=== PATIENT | male | born 1935 | race Caucasian/White ===

== ENCOUNTER 2016-10-07 09:53 | Emergency (ER) | payer MEDICARE ==
[~2016-10-07 09:53] MED LIST: ACETAMINOPHEN325 MG PO; ATIVAN0.5 MG PO; BAYER CHEWABLE81 MG PO; CELEXA20 MG PO; DULCOLAX5 MG PO; HALDOL5 MG PO; IMODIUM2 MG PO; LACTASE3000 UNIT PO; LEVSIN/ANASP0.125 MG PO; MORPHINE SULFAT30 M4 PO; NEURONTIN800 MG PO; NITROQUICK0.4 MG SL; PHENERGAN25 MG RC; PLAVIX75 MG PO; SENNA8.8 MG/5 M PO; TRAZODONE HCL50 MG PO; VOLTAREN100 GM
== END 2016-10-07 11:40 | disposition home or self-care (01) ==
LOC: D.ER 09:53
DX: S01.312A Laceration without foreign body of left ear, initial encounter (principal); W45.8XXA Other foreign body or object entering through skin, initial encounter; Y93.89 Activity, other specified; Y92.129 Unspecified place in nursing home as the place of occurrence of the external cause; F41.9 Anxiety disorder, unspecified; C18.9 Malignant neoplasm of colon, unspecified; F32.9 Major depressive disorder, single episode, unspecified; F42.9 Obsessive-compulsive disorder, unspecified

== ENCOUNTER 2017-05-12 14:20 | Emergency (ER) | payer MEDICARE ==
[2014-10-03 19:16] VITALS: BMI 20.8
== END 2017-05-12 16:42 | disposition home or self-care (01) ==
LOC: D.ER 14:20
DX: M25.521 Pain in right elbow (principal); M25.552 Pain in left hip; W05.0XXA Fall from non-moving wheelchair, initial encounter; Y93.89 Activity, other specified; Y92.129 Unspecified place in nursing home as the place of occurrence of the external cause; Z85.038 Personal history of other malignant neoplasm of large intestine; F42.9 Obsessive-compulsive disorder, unspecified

== ENCOUNTER 2017-09-03 14:36 | Inpatient (IN) | payer MEDICARE ==
[~2017-09-03] VITALS: Ht 172.7 cm; Wt 63.7 kg
--- NOTE | ~2017-09-03 | PN ---
PATIENT:JERILYN BENÍTEZ MEDICAL RECORD: [id number] LOCATION:MARIANNE Mir ADMISSION DATE: 09/03/17 PROGRESS NOTE DATE OF SERVICE: 09/06/2017 SUBJECTIVE: No new complaint. OBJECTIVE: Considerable additional history was obtained by staff from the patient's daughter. The patient has a long past history of alcoholism. He also has a history of violence and threatening others. He has been previously hospitalized because of combative behavior at a geriatric facility in [place], [place]. In 2003, his disappeared under mysterious circumstances. Her whereabouts evidently have never been determined. He has made threats against other family members, and of course since admission, the patient has been agitated and combative with staff. Serum valproic acid level from this morning is subtherapeutic at 34.1. On exam, mood is irritable. Affect is brittle. Speech is terse. Content of thought shows nonspecific paranoid ideation. Sensorium shows no change. ASSESSMENT: No change in diagnosis. PLAN: 1. Advance Depakote Sprinkles to 500 mg b.i.d. 2. Add Geodon 20 mg b.i.d. 3. Continue other current medications and supportive therapy. TRANSINT:[id number] Voice Confirmation ID: [id number] DOCUMENT ID: [id number] JAMILAH LUONG III, MD at 1026 CC: [id number] DICTATION DATE: 09/06/17 1126 ARMORED CABLE MACHINE OPERATOR: 09/06/17 1233 ADM IN [place] [id number] [place] [address]
--- NOTE | ~2017-09-03 | PN ---
PATIENT:JERILYN BENÍTEZ MEDICAL RECORD: [id number] LOCATION:MARIANNE Mir ADMISSION DATE: 09/03/17 PROGRESS NOTE DATE OF SERVICE: 09/24/2017 SUBJECTIVE: The patient's case was discussed with staff. He has no new complaint. OBJECTIVE: The patient denies intent to harm himself or others. He generally tolerates his medicines well. ASSESSMENT: No change in diagnoses. PLAN: Brief supportive and educational interventions were made. Long-term prognosis is guarded. TRANSINT:[id number] Voice Confirmation ID: [id number] DOCUMENT ID: [id number] NINA MOTTA MD at 1001 CC: [id number] DICTATION DATE: 09/24/17 1148 MORTGAGE LOAN SPECIALIST: 09/24/17 1201 ADM IN [place] [address] [place] [address]
--- NOTE | ~2017-09-03 | PN ---
PATIENT:JERILYN BENÍTEZ MEDICAL RECORD: [id number] LOCATION:CarinaCLEMENTINA Clarke ADMISSION DATE: 09/03/17 PROGRESS NOTE DATE OF SERVICE: 09/10/2017 SUBJECTIVE: The patient's case was discussed with staff. He has no new complaint. OBJECTIVE: The patient is not sleeping well. He has been somewhat irritable and angry, but not openly aggressive or threatening. ASSESSMENT: No change in diagnoses. PLAN: The patient's Cogentin is going to be discontinued. I am concerned that the medication's antihistaminic effect may be clouding his sensorium. If he displays evidence of extrapyramidal side effects, I would prefer to address the issue through his antipsychotic dose as opposed to the use of Cogentin. Furthermore, I am going to address the sleep issue with a low dose of trazodone, which may help organize his thinking and behavior some. TRANSINT:[id number] Voice Confirmation ID: [id number] DOCUMENT ID: [id number] NINA MOTTA MD at 1844 CC: [id number] DICTATION DATE: 09/10/17 1102 OPTICS MANUFACTURING TECHNICIAN: 09/11/17 0039 ADM IN [facility] [address] [place] [id number]
--- NOTE | ~2017-09-03 | PN ---
PATIENT:JERILYN BENÍTEZ MEDICAL RECORD: [id number] LOCATION:MARIANNE Lim112 ADMISSION DATE: 09/03/17 PROGRESS NOTE DATE OF SERVICE: 09/16/2017 SUBJECTIVE: No new complaint is noted. OBJECTIVE: The patient continues to be irritable, but does accept redirection. On exam, mood is indeed irritable. Affect is brittle. Speech is quite terse. Content of thought is unchanged. Sensorium is unchanged. ASSESSMENT: No change in diagnoses. PLAN: 1. Maintain current medication. 2. Continue supportive therapy. TRANSINT:[id number] Voice Confirmation ID: [id number] DOCUMENT ID: [id number] JAMILAH LUONG III, MD at 0703 CC: [id number] DICTATION DATE: 09/16/17 1000 OUTREACH CLINICIAN: 09/16/17 1109 ADM IN [place] [address] [place] [id number]
--- NOTE | ~2017-09-03 | PN ---
PATIENT:JERILYN BENÍTEZ MEDICAL RECORD: [id number] LOCATION:MARIANNE Mir ADMISSION DATE: 09/03/17 PROGRESS NOTE DATE OF SERVICE: 09/14/2017 SUBJECTIVE: No new complaint. OBJECTIVE: The patient continues to show outbursts of agitation and yelling at night. During the daytime, he is somewhat better controlled. The patient's Geodon has been reduced to 20 mg at bedtime only due to perceived extrapyramidal effects. Cogentin has also been discontinued. On exam, the patient's mood is irritable. Affect is brittle. Speech is overly loud. Content of thought is negative for clear cut psychosis. Sensorium is unchanged. ASSESSMENT: No change in diagnosis. PLAN: 1. We will continue now with current medication orders. 2. Continue supportive therapy. TRANSINT:[id number] Voice Confirmation ID: [id number] DOCUMENT ID: [id number] JAMILAH LUONG III, MD at 1051 CC: [id number] DICTATION DATE: 09/14/17 1205 HEALTH AND SAFETY TECH: 09/14/17 1314 ADM IN [place] [id number] [place] [id number]
--- NOTE | ~2017-09-03 | PN ---
PATIENT:JERILYN BENÍTEZ MEDICAL RECORD: [id number] LOCATION:MARIANNE Mir ADMISSION DATE: 09/03/17 PROGRESS NOTE DATE OF SERVICE: 09/21/2017 SUBJECTIVE: No coherent complaint. OBJECTIVE: The patient continues to be combative unfortunately. He did again require p.r.n. medication. However, he has been accepted by [facility] and Leila assessment is complete. On exam, mood is irritable. Affect is very brittle. Speech is for the most part incoherent. Content of thought exhibits nonspecific paranoid ideation. Sensorium shows no change. ASSESSMENT: No change in diagnosis. PLAN: 1. Adjust neuroleptics as indicated. 2. The patient's current valproic acid level is subtherapeutic (in the 40s). However, current dose will be maintained as the patient has been inconsistent in taking medication. 3. Continue other medications and supportive therapy. TRANSINT:[id number] Voice Confirmation ID: [id number] DOCUMENT ID: [id number] JAMILAH LUONG III, MD at 2052 CC: [id number] DICTATION DATE: 09/21/17 1053 BEER STILL RUNNER COMPOUNDER: 09/21/17 1125 ADM IN [facility] [address] [place] [address]
--- NOTE | ~2017-09-03 | PN ---
PATIENT:JERILYN BENÍTEZ MEDICAL RECORD: [id number] LOCATION:MARIANNE Lim112 ADMISSION DATE: 09/03/17 PROGRESS NOTE DATE OF SERVICE: 09/25/2017 SUBJECTIVE: The patient's case was discussed with staff. He has no new complaint. OBJECTIVE: The patient denies intent to harm himself or others. He generally tolerates his medicines well. ASSESSMENT: No change in diagnoses. PLAN: Brief supportive and educational interventions were made. The patient is not showing acute evidence of direct dangerousness. TRANSINT:[id number] Voice Confirmation ID: [id number] DOCUMENT ID: [id number] NINA MOTTA MD at 1409 CC: [id number] DICTATION DATE: 09/25/17 1030 FOUNDATION COORDINATOR: 09/25/17 1658 ADM IN [place] [id number] [place] [address]
--- NOTE | ~2017-09-03 | PN ---
PATIENT:JERILYN BENÍTEZ MEDICAL RECORD: [id number] LOCATION:MARIANNE Mir ADMISSION DATE: 09/03/17 PROGRESS NOTE DATE OF SERVICE: 09/09/2017 SUBJECTIVE: No new complaint. OBJECTIVE: The patient's valproic acid level from this morning was 62, which is therapeutic. He does give some evidence of extrapyramidal syndrome. Agitation and combativeness are markedly reduced. On exam, mood remains somewhat irritable. Affect is brittle. Speech is tangential. Content of thought shows no overt psychosis. Sensorium shows no change. ASSESSMENT: No change in diagnosis. PLAN: 1. We will add benztropine 1 mg b.i.d. 2. Continue other current medications. 3. Continue supportive therapy. TRANSINT:[id number] Voice Confirmation ID: [id number] DOCUMENT ID: [id number] JAMILAH LUONG III, MD at 1037 CC: [id number] DICTATION DATE: 09/09/17 1109 SUPPLY CHAIN DESIGN MANAGER: 09/09/17 1255 ADM IN [place] [address] [place] [address]
--- NOTE | ~2017-09-03 | PSY ---
PATIENT NAME:JERILYN BENÍTEZ MEDICAL RECORD: [id number] : 34 LOCATION:MARIANNE Mir2 ADMISSION DATE: 09/03/17 ACCOUNT: [id number] PSYCHIATRIC EVALUATION DATE OF EVALUATION: 09/04/17 IDENTIFYING DATA: This is the first known Jail admission for this 82-year-old white male. The patient was admitted on transfer from [facility] in [place]. HISTORY OF PRESENT ILLNESS: This patient does have a past diagnosis of schizophrenia recorded in the old chart; however, that is not included on the current diagnosis. 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 Prior to admission, the patient had been showing increasing agitation, insomnia, and combativeness. He had been noncompliant with care as well. Following admission, the patient continued to show combativeness and agitation. Because of worsening mental status and deteriorating behavior, the patient was admitted. PAST MEDICAL HISTORY: Significant for coronary artery disease, past history of colon cancer, osteoarthritis and constipation as well as possible seizure disorder. MEDICATIONS: Medications at the time of admission included Neurontin 300 mg t.i.d., Keppra 500 mg b.i.d., omeprazole 20 mg daily, Depakote Sprinkle 250 mg t.i.d., and p.r.n. nitroglycerin for chest pain. FAMILY HISTORY: Noncontributory. SOCIAL HISTORY: The patient has been a [facility] resident for some time. No history of substance abuse or legal entanglements. ALLERGIES: LISTED SULFONAMIDE ANTIBIOTICS. MENTAL STATUS: On interview, the patient remains agitated and irritable and somewhat difficult to redirect. Affect is brittle. Speech is tangential. Content of thought is positive for nonspecific paranoid ideation. On sensorium testing, the patient is oriented to person, but not clearly as to place nor time. He shows memory impairment in all aspects. Insight is very poor. 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 AXIS II: No diagnosis. AXIS III: Coronary artery disease, history of colon cancer, osteoarthritis, constipation. AXIS IV: Severe. AXIS V: 34. PLAN: 1. The patient is admitted for further medical and psychiatric workup. 2. Medication adjustment is indicated. 3. Daily supportive therapy. TRANSINT:[id number] Voice Confirmation ID: [id number] DOCUMENT ID: [id number] JAMILAH LUONG III, MD at 1027 CC: [id number] DICTATION DATE: 09/04/17 1351 COLLISION REPAIRER: 09/04/17 1428 ADM IN [place] [address] [place] [id number]
--- NOTE | ~2017-09-03 | PN ---
PATIENT:JERILYN BENÍTEZ MEDICAL RECORD: [id number] LOCATION:MARIANNE Mir ADMISSION DATE: 09/03/17 PROGRESS NOTE DATE OF SERVICE: 09/08/2017 SUBJECTIVE: No new complaint. OBJECTIVE: The patient continues to have outbursts of agitation and yelling. He was tested by Dr. Gutierrez and scored only 5/30 on the [facility] Mental Status exam. Staff has made contact with the patient's family. He will be transferred to [facility] when he is ready for discharge. On exam, mood irritable. Affect very brittle. Speech is loud and profane. Content of thought shows nonspecific paranoid ideation. Sensorium shows no change. ASSESSMENT: No change in diagnosis. PLAN: 1. Adjust neuroleptics as indicated for control of threatening behavior. 2. Continue other medications. 3. Continue supportive therapy. TRANSINT:[id number] Voice Confirmation ID: [id number] DOCUMENT ID: [id number] JAMILAH LUONG III, MD at 0508 CC: [id number] DICTATION DATE: 09/08/17 1142 SALES ASSISTANT: 09/08/17 1149 ADM IN [facility] [address] [place] [address]
--- NOTE | ~2017-09-03 | PN ---
PATIENT:JERILYN BENÍTEZ MEDICAL RECORD: [id number] LOCATION:MARIANNE Mir ADMISSION DATE: 09/03/17 PROGRESS NOTE DATE OF SERVICE: 09/05/2017 SUBJECTIVE: The patient states that he does not feel good. OBJECTIVE: Staff report that the patient has not been combative today. He did sleep over 9 hours last night, which is an improvement. Appetite has been fair. On exam, mood is somewhat irritable. Affect is overall constricted. Speech is quite terse. Content of thought is negative for overt psychosis. Sensorium shows no change. ASSESSMENT: No change in diagnosis. PLAN: 1. Add Aricept 5 mg h.s. 2. Continue other medications. 3. Continue supportive therapy. TRANSINT:[id number] Voice Confirmation ID: [id number] DOCUMENT ID: [id number] JAMILAH LUONG III, MD at 1405 CC: [id number] DICTATION DATE: 09/05/17 1107 MUSIC INTERNSHIP: 09/05/17 1132 ADM IN [place] [id number] [place] [id number]
--- NOTE | ~2017-09-03 | PN ---
PATIENT:JERILYN BENÍTEZ MEDICAL RECORD: [id number] LOCATION:MARIANNE Mir ADMISSION DATE: 09/03/17 PROGRESS NOTE DATE OF SERVICE: 09/19/2017 SUBJECTIVE: No coherent complaint. OBJECTIVE: The patient became agitated last night and did receive p.r.n. He continues to show agitation and combativeness this morning. On exam, mood is quite irritable. Affect is brittle. Speech is rambling. Content of thought exhibits paranoid ideation. Sensorium shows no change. ASSESSMENT: No change in diagnosis. PLAN: 1. Continue with current medication orders. 2. Continue supportive therapy. TRANSINT:[id number] Voice Confirmation ID: [id number] DOCUMENT ID: [id number] JAMILAH LUONG III, MD at 0909 CC: [id number] DICTATION DATE: 09/19/17 1054 NOODLE PRESS OPERATOR: 09/19/17 1259 ADM IN [facility] [address] [place] [address]
--- NOTE | ~2017-09-03 | PN ---
PATIENT:JERILYN BENÍTEZ MEDICAL RECORD: [id number] LOCATION:MARIANNE Mir ADMISSION DATE: 09/03/17 PROGRESS NOTE DATE OF SERVICE: 09/15/2017 SUBJECTIVE: No coherent complaint. OBJECTIVE: Staff reports the patient can express his needs, but becomes loud and verbally aggressive when he feels that he is not being given sufficient attention. However, he has not been combative. On exam, mood is somewhat irritable. Affect is brittle. Speech is repetitive. Content of thought negative for overt psychosis. Sensorium shows no change. ASSESSMENT: No change in diagnosis. PLAN: 1. Continue current medication. 2. Continue supportive therapy. TRANSINT:[id number] Voice Confirmation ID: [id number] DOCUMENT ID: [id number] JAMILAH LUONG III, MD at 0758 CC: [id number] DICTATION DATE: 09/15/17 1140 LENS GAUGER: 09/15/17 1157 ADM IN [place] [id number] [place] [address]
--- NOTE | ~2017-09-03 | PN ---
PATIENT:JERILYN BENÍTEZ MEDICAL RECORD: [id number] LOCATION:MARIANNE Mir ADMISSION DATE: 09/03/17 PROGRESS NOTE DATE OF SERVICE: 09/20/2017 SUBJECTIVE: No new complaint. OBJECTIVE: Staff notes the patient continues to be uncooperative from time to time; however, they also note that he is not eating as well and seems somewhat weaker. A swallow evaluation has been ordered for today. On exam, mood remains irritable. Affect is brittle. Speech is repetitive and overly loud. Content of thought unchanged. Sensorium unchanged. ASSESSMENT: No change in diagnosis. PLAN: 1. Maintain current medication. 2. Continue supportive therapy. TRANSINT:[id number] Voice Confirmation ID: [id number] DOCUMENT ID: [id number] JAMILAH LUONG III, MD at 1017 CC: [id number] DICTATION DATE: 09/20/17 1030 MEDICARE SPECIALIST: 09/20/17 1241 ADM IN [place] [address] [place] [address]
--- NOTE | ~2017-09-03 | PN ---
PATIENT:JERILYN BENÍTEZ MEDICAL RECORD: [id number] LOCATION:MARIANNE Lim112 ADMISSION DATE: 09/03/17 PROGRESS NOTE DATE OF SERVICE: 09/12/2017 SUBJECTIVE: The patient's case was discussed with staff. He has no new complaint. OBJECTIVE: The patient is in good behavioral control with limited insight about his condition. Eye contact is fair. His Depakote level was therapeutic at 62 on Tuesday. I am going to decrease his Geodon slightly because of some drooling side effects. TRANSINT:[id number] Voice Confirmation ID: [id number] DOCUMENT ID: [id number] NINA MOTTA MD at 1016 CC: [id number] DICTATION DATE: 09/12/171901 REFRACTORY SPECIALIST: 09/13/17 0324 ADM IN [place] [address] [place] [address]
--- NOTE | ~2017-09-03 | PN ---
PATIENT:JERILYN BENÍTEZ MEDICAL RECORD: [id number] LOCATION:MARIANNE Mir ADMISSION DATE: 09/03/17 PROGRESS NOTE DATE OF SERVICE: 09/26/2017 SUBJECTIVE: No new complaint. OBJECTIVE: The patient has done well over the last several days. He had a good weekend. He has not required p.r.n. medication for the last 5 days. He is eating better. On exam, mood is for the most part euthymic. Affect is rather constricted. Speech somewhat terse. Content of thought shows no overt psychosis. Sensorium is unchanged. ASSESSMENT: No change in diagnosis. PLAN: 1. Continue all current medications. 2. Anticipate discharge tomorrow. TRANSINT:[id number] Voice Confirmation ID: [id number] DOCUMENT ID: [id number] JAMILAH LUONG III, MD at 0644 CC: [id number] DICTATION DATE: 09/26/17 1120 SUPERVISOR POLE YARD: 09/26/17 1244 ADM IN [place] [id number] [place] [address]
--- NOTE | ~2017-09-03 | PN ---
PATIENT:JERILYN BENÍTEZ MEDICAL RECORD: [id number] LOCATION:MARIANNE Mir ADMISSION DATE: 09/03/17 PROGRESS NOTE DATE OF SERVICE: 09/22/2017 SUBJECTIVE: No new complaint. OBJECTIVE: The patient continues to have episodes of combativeness at night. However, he has been started on perphenazine 2 mg t.i.d. as of yesterday and hopefully this will afford some improvement. On exam, mood remains somewhat irritable. Affect is shallow. Speech is very terse. Content of thought is unchanged. Sensorium is unchanged. ASSESSMENT: No change in diagnosis. PLAN: 1. Maintain current medication. 2. Continue supportive therapy. TRANSINT:[id number] Voice Confirmation ID: [id number] DOCUMENT ID: [id number] JAMILAH LUONG III, MD at 1013 CC: [id number] DICTATION DATE: 09/22/17 1213 PRIVATE EYE: 09/22/17 1300 ADM IN [place] [address] [place] [address]
--- NOTE | ~2017-09-03 | DS ---
PATIENT:JERILYN BENÍTEZ :33 MEDICAL RECORD: [id number] DISCHARGE SUMMARY ADMISSION DATE: 09/03/17 DISCHARGE DATE: 09/27/17 DATE OF ADMISSION: 09/03/2017 DATE OF DISCHARGE: 09/27/2017 HISTORY: An 82-year-old white male admitted on transfer from [facility] in [place]. The patient has a past history of Alzheimer dementia with behavioral disturbance. The patient had been showing combativeness and agitation prior to transfer. For further details, please see previously dictated history. COURSE IN THE HOSPITAL: The patient was seen in consultation by Dr. Lugo. Dr. Lugo noted the presence of coronary artery disease, osteoarthritis, and a past history of colon cancer. The patient was treated with a range of mood stabilizing medications. Initially, he was treated with Geodon, but did develop significant side effects including tremor and drooling. This was discontinued and the patient was later started on perphenazine 2 mg t.i.d. He was also treated with Depakote 500 mg b.i.d. for his emotional outburst and agitation. The patient did achieve a stable blood level. The patient was also treated with Aricept 5 mg at bedtime for his dementia symptoms. The patient's management was complicated from time to time due to his agitation and combativeness. However, with the addition of the perphenazine late in the hospitalization, the patient showed considerable improvement and by the time of discharge had not required particular intervention for well over a week. His nonpsychiatric medications were continued. [facility]. 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 AXIS II: No diagnosis. AXIS III: History of colon cancer, coronary artery disease, osteoarthritis. AXIS IV: Moderate. AXIS V: 38. PLAN: 1. The patient is discharged on current medication. 2. Diet and activities as tolerated. 3. Follow up with primary care physician at the [facility]. TRANSINT:[id number] Voice Confirmation ID: [id number] DOCUMENT ID: [id number] DISCHARGE SUMMARY REPORT [id number] JERILYN BENÍTEZ CHERISE ESCALANTE, JAMILAH Burrows MD at 0736 CC: [id number] DICTATION DATE: 09/27/17 1142 RETAIL GREETER: 09/28/17 0832 DIS IN 09/27/17 [facility] [address] [place] [address]
--- NOTE | ~2017-09-03 | PN ---
PATIENT:JERILYN BENÍTEZ MEDICAL RECORD: [id number] LOCATION:MARIANNE Mir ADMISSION DATE: 09/03/17 PROGRESS NOTE DATE OF SERVICE: 09/07/2017 SUBJECTIVE: No new complaint. OBJECTIVE: Staff have consulted with the patient's previous retirement. The patient will need to go to [facility] because of his behavior. Geodon has been started. The patient is tolerating this medication. On exam, mood is irritable. Affect remains brittle. Speech is somewhat tangential. Content of thought shows nonspecific paranoid ideation. Sensorium shows no change. ASSESSMENT: No change in diagnoses. PLAN: 1. Maintain current medication. 2. Continue supportive therapy. TRANSINT:[id number] Voice Confirmation ID: [id number] DOCUMENT ID: [id number] JAMILAH LUONG III, MD at 0833 CC: [id number] DICTATION DATE: 09/07/17 1059 SOLE SEAMER: 09/07/17 1151 ADM IN [facility] [address] [place] [address]
--- NOTE | ~2017-09-03 | PN ---
PATIENT:JERILYN BENÍTEZ MEDICAL RECORD: [id number] LOCATION:MARIANNE Mir ADMISSION DATE: 09/03/17 PROGRESS NOTE DATE OF SERVICE: 09/13/2017 SUBJECTIVE: No new coherent complaint. OBJECTIVE: The patient became agitated last night during routine personal care. He did receive p.r.n. This morning, he is somewhat drowsy. Overall, the patient has shown some attenuation of his agitation and combativeness. On exam today, mood is euthymic. Affect is reserved. The patient is drowsy. Speech is minimal. Content of thought unchanged. Sensorium unchanged. ASSESSMENT: No change in diagnosis. PLAN: 1. Maintain current medication plan. 2. Continue supportive therapy. TRANSINT:[id number] Voice Confirmation ID: [id number] DOCUMENT ID: [id number] JAMILAH LUONG III, MD at 0831 CC: [id number] DICTATION DATE: 09/13/17 1128 TELESALES REPRESENTATIVE: 09/13/17 1203 ADM IN [place] [id number] [place] [address]
--- NOTE | ~2017-09-03 | PN ---
PATIENT:JERILYN BENÍTEZ MEDICAL RECORD: [id number] LOCATION:MARIANNE Lim112 ADMISSION DATE: 09/03/17 PROGRESS NOTE DATE OF SERVICE: 09/23/2017 SUBJECTIVE: The patient's case was discussed with staff. He has no new complaint. OBJECTIVE: The patient is in good behavioral control with limited insight about his condition. He still is not eating well. ASSESSMENT: No change in diagnoses. PLAN: The patient will be maintained on current medicines, which have to be crushed. His long-term prognosis is guarded. TRANSINT:[id number] Voice Confirmation ID: [id number] DOCUMENT ID: [id number] NINA MOTTA MD at 1130 CC: [id number] DICTATION DATE: 09/23/17 1438 MAINTENANCE FITTER: 09/23/17 1547 ADM IN [facility] [address] [place] [address]
[~2017-09-03 14:36] MED LIST changes: +NEURONTIN 300300 MG PO; -NEURONTIN800 MG PO
[2017-09-03] MEDS ORDERED: OMEPRAZOLE20 M1 PO (23:16)
[2017-09-03] MEDS ORDERED: KEPPRA500 MG PO (23:18)
[2017-09-03] MEDS ORDERED: DEPAKOTE SPRIN125 MG PO (23:20)
[2017-09-03] MEDS ORDERED: HYDROCORTISONE30 G8 TOPICAL (23:28)
[2017-09-03] MEDS ORDERED: MILK OF MAG PO (23:31)
[2017-09-03] MEDS ORDERED: NITROSTAT0.4 MG SL (23:32)
[2017-09-04 05:37] VITALS: BP 154/82; BMI 21.9
[2017-09-04 07:00] VITALS: BP 147/94
[2017-09-04 07:09] LABS: BASOPHILS 0.2 % (0-2); EOSINOPHILS 1.1 % (0-7); HEMATOCRIT 41.1 % (42.0-54.0); IMMATURE GRANULOCYTES 0.1 % (0-5); LYMPHOCYTES 15.2 % (15-50); MCH 30.4 pg (26.0-34.0); MCHC 34.1 g/dL (31.0-37.0); MCV 89.3 fL (80.0-100.0); MEAN PLATELET VOLUME 10.8 fL (7.4-10.4); MONOCYTES 9.2 % (2-11); NEUTROPHILS 74.2 % (40-80); PLATELET COUNT 255 10x3/uL (130-400); RDW 14.2 % (11.5-14.5); WBC 8.9 10x3/uL (4.8-10.8)
[2017-09-04 07:42] LABS: ALBUMIN 2.9 g/dL (3.4-5.0); ALKALINE PHOSPHATASE 80 U/L (46-116); ALT (SGPT) 44 U/L (10-68); CALC OSMOLALITY 278 mosm/kg (275-300); CALCIUM 8.1 mg/dL (8.5-10.1); CARBON DIOXIDE 25.3 mmol/L (21.0-32.0); CHLORIDE - SERUM 102 mmol/L (98-107); CHOL - HDL RATIO 2.8 ratio (2.3-4.9); CHOLESTEROL, TOTAL 135 mg/dL (0-200); CREATININE - SERUM 0.8 mg/dL (0.6-1.3); GLUCOSE 97 mg/dL (74-106); HDL CHOLESTEROL 49 mg/dL (32-96); LDL CHOLESTEROL 73 mg/dL (0-100); LDL-HDL RATIO 1.5 ratio (1.5-3.5); POTASSIUM - SERUM 3.9 mmol/L (3.5-5.1); PROTEIN - SERUM 6.4 g/dL (6.4-8.2); SODIUM 138 mmol/L (136-145); THYROID STIMULATING HORMONE 2.03 uIU/mL (0.36-3.74); TRIGLYCERIDE 67 mg/dL (30-200); UREA NITROGEN 20 mg/dL (7-18); VALPROIC ACID (DEPAKOTE) 10.1 ug/mL (50.0-100.0); eGFR NON AFRICAN AMERICAN > 90 mL/min (90-120)
[2017-09-05 07:28] VITALS: BP 165/81
[2017-09-05 08:05] VITALS: BMI 22.0
[2017-09-05 14:30] VITALS: Ht 172.7 cm; Wt 63.7 kg
[2017-09-05 21:22] VITALS: BP 154/84
[2017-09-06 06:14] LABS: RAPID PLASMA REAGIN Non Reactive (Non Reactive)
[2017-09-06 09:16] LABS: FOLATE (FOLIC ACID) - SERUM 12.7 ng/mL (>3.0)
[2017-09-06 09:45] VITALS: BP 128/76
[2017-09-06 11:22] LABS: VITAMIN D 25 HYDROXY 23.3 ng/mL (30.0-100.0)
[2017-09-06 19:41] VITALS: BP 119/71
[2017-09-07 08:54] VITALS: BP 118/55
[2017-09-07 20:50] VITALS: BP 135/89
[2017-09-08 08:38] VITALS: BP 131/59
[2017-09-08 22:50] VITALS: BP 99/58
[2017-09-09 09:45] VITALS: BP 149/67
[2017-09-09 19:20] VITALS: BP 126/63
[2017-09-10 09:41] VITALS: BP 129/72
[2017-09-10 20:49] VITALS: BP 150/67
[2017-09-11 07:00] VITALS: BP 122/71
[2017-09-11 19:25] VITALS: BP 134/42
[2017-09-12 10:21] LABS: APPEARANCE CLEAR (CLEAR); BILIRUBIN NEGATIVE (NEGATIVE); COLOR DK YELLOW (YELLOW); GLUCOSE NEGATIVE (NEGATIVE); KETONE SMALL mg/dL (NEGATIVE); NITRITE NEGATIVE (NEGATIVE); PROTEIN NEGATIVE (NEGATIVE); SPECIFIC GRAVITY 1.015 (1.005-1.020); UROBILINOGEN NORMAL (NORMAL)
[2017-09-12 20:09] VITALS: BP 127/51
[2017-09-13 07:00] VITALS: BP 105/74
[2017-09-13 19:57] VITALS: BP 117/100
[2017-09-14 07:27] VITALS: BP 130/64
[2017-09-14 21:29] VITALS: BP 150/55
[2017-09-15 10:04] VITALS: BP 122/68
[2017-09-15 20:52] VITALS: BP 118/52
[2017-09-16 07:57] VITALS: BP 98/60
[2017-09-16 20:32] VITALS: BP 142/69
[2017-09-17 07:44] VITALS: BP 74/42
[2017-09-17 19:19] VITALS: BP 144/92
[2017-09-18 19:04] VITALS: BP 115/59
[2017-09-19 07:00] VITALS: BP 137/68
[2017-09-19 19:25] VITALS: BP 138/77
[2017-09-20 07:59] VITALS: BP 112/70
[2017-09-20 22:00] VITALS: BP 116/51
[2017-09-21 08:17] VITALS: BP 135/69
[2017-09-21 19:38] VITALS: BP 124/67
[2017-09-22 08:50] VITALS: BP 175/73
[2017-09-22 19:41] VITALS: BP 130/60
[2017-09-23 08:47] VITALS: BP 132/70
[2017-09-23 19:17] VITALS: BP 128/69
[2017-09-24 07:26] VITALS: BP 134/74
[2017-09-24 19:40] VITALS: BP 114/64
[2017-09-25 07:00] VITALS: BP 138/73
[2017-09-25 20:25] VITALS: BP 139/70
[2017-09-26 08:30] VITALS: BP 107/71
[2017-09-26] MEDS ORDERED: MEGACE40 MG PO (11:07)
[2017-09-26] MEDS ORDERED: ARICEPT5 MG PO (11:07)
[2017-09-26] MEDS ORDERED: DEPAKOTE SPRIN125 MG PO (11:08)
[2017-09-26] MEDS ORDERED: ACETAMINOPHEN325 MG PO (11:08)
[2017-09-26] MEDS ORDERED: METFORMIN HCL500 M1 PO (11:09)
[2017-09-26] MEDS ORDERED: PERPHENAZINE2 MG PO (11:09)
[2017-09-26] MEDS ORDERED: TRAZODONE HCL50 MG PO (11:09)
[2017-09-26] MEDS ORDERED: VITAMIN D5000 UNIT PO (11:10)
[2017-09-26 21:02] VITALS: BP 100/64
[2017-09-27 07:46] VITALS: BP 164/81
== END 2017-09-27 10:30 | DRG 57 ==
LOC: D.ER 14:36 → D.PSYCH 18:00
PROVIDERS: Psychiatry & Neurology Psychiatry
DX: G30.9 Alzheimer's disease, unspecified (principal); F02.81 Dementia in other diseases classified elsewhere, unspecified severity, with behavioral disturbance; N39.0 Urinary tract infection, site not specified; Z85.038 Personal history of other malignant neoplasm of large intestine; I25.10 Atherosclerotic heart disease of native coronary artery without angina pectoris; M19.90 Unspecified osteoarthritis, unspecified site; K59.00 Constipation, unspecified; R07.89 Other chest pain; Z74.09 Other reduced mobility; F41.9 Anxiety disorder, unspecified; F32.9 Major depressive disorder, single episode, unspecified; B96.89 Other specified bacterial agents as the cause of diseases classified elsewhere; E55.9 Vitamin D deficiency, unspecified; E11.40 Type 2 diabetes mellitus with diabetic neuropathy, unspecified